=== PATIENT | female | born 1990 | race Caucasian/White ===

== ENCOUNTER 2016-09-24 12:03 | Emergency (ER) | payer OTHER | END 2016-09-24 14:45 | disposition home or self-care (01) | LOC: FER 12:03 | DX: G44.209 Tension-type headache, unspecified, not intractable (principal); F41.9 Anxiety disorder, unspecified | CPT/HCPCS: J1100; J1885; J2765 ==

== ENCOUNTER 2020-05-05 13:39 | Emergency (ER) | payer OTHER ==
[2020-05-05 17:18] LABS: BILIRUBIN NEGATIVE (NEGATIVE); BLOOD NEGATIVE Ery/uL (NEGATIVE); CLARITY CLEAR (CLEAR); COLOR YELLOW (YELLOW); GLUCOSE (U) NORMAL (NORMAL); LEUKOCYTES NEGATIVE Leu/uL (NEGATIVE); NITRITE POSITIVE (NEGATIVE); PROTEIN NEGATIVE (NEGATIVE); SPECIFIC GRAVITY >=1.030 (1.001-1.030); UROBILINOGEN 0.2 mg/dL (0.2-1.0)
[2020-05-05 17:31] LABS: BASOPHIL 0.8 % (0-2); EOSINOPHIL 1.6 % (0-5); HCT 39.4 % (37.0-47.0); HGB 12.6 g/dl (12.5-16.0); LYMPHOCYTE 30.5 % (15-48); MCH 27.9 pg (25.0-31.0); MCV 87.2 fL (78.0-100.0); MONOCYTE 5.1 % (0-12); MPV 10.1 fL (6.0-9.5); NEUTROPHIL 61.8 % (41-80); NRBC 0; PLT 323 K/uL (150-400); RBC 4.52 M/uL (4.20-5.40); RDW 12.5 % (11.5-14.0); WBC 8.4 K/uL (4.0-10.5)
[2020-05-05 17:39] LABS: BACTERIA 4+
[2020-05-05 17:41] LABS: MUCOUS TRACE; SQUAMOUS EPITHELIAL CELLS RARE
[2020-05-05 17:47] LABS: ALBUMIN 3.8 g/dL (3.4-5.0); BILIRUBIN - TOTAL 0.5 mg/dL (0.2-1.0); BUN/CREAT RATIO (CALC) 22.5 RATIO; CREATININE 0.89 mg/dL (0.51-0.95); GLOBULIN (CALCULATION) 4.1 g/dL; POTASSIUM 3.9 mmol/L (3.5-5.1); TOTAL PROTEIN 7.9 g/dL (6.4-8.2)
[2020-05-05] MEDS ORDERED: PROTONIX 40MG T40 MG PO (18:24)
[2020-05-05] MEDS ORDERED: ZOFRAN4 M1 PO (18:24)
[2020-05-05] MEDS ORDERED: BACTRIM DS TAB1 EACH PO (18:28)
== END 2020-05-05 18:43 | disposition home or self-care (01) ==
LOC: FER 13:39
PROVIDERS: Nurse Practitioner Family
DX: K21.9 Gastro-esophageal reflux disease without esophagitis (principal); N39.0 Urinary tract infection, site not specified; Z87.19 Personal history of other diseases of the digestive system
CPT/HCPCS: 36415; 80053; 81001; 85025; 87076; 87088; 87186; 99284

== ENCOUNTER 2020-05-31 17:51 | Emergency (ER) | payer OTHER ==
[~2020-05-31 17:51] MED LIST: BACTRIM DS TAB1 EACH PO; PROTONIX 40MG T40 MG PO; ZOFRAN4 M1 PO
[2020-05-31 19:22] LABS: BILIRUBIN NEGATIVE (NEGATIVE); BLOOD 3+ Ery/uL (NEGATIVE); CLARITY CLEAR (CLEAR); COLOR YELLOW (YELLOW); GLUCOSE (U) NORMAL (NORMAL); LEUKOCYTES NEGATIVE Leu/uL (NEGATIVE); NITRITE NEGATIVE (NEGATIVE); PROTEIN NEGATIVE (NEGATIVE); SPECIFIC GRAVITY 1.025 (1.001-1.030); UROBILINOGEN 0.2 mg/dL (0.2-1.0); pH 5.5 (5.0-9.0)
[2020-05-31 19:22] LABS: BASOPHIL 1.1 % (0-2); HCT 42.5 % (37.0-47.0); HGB 13.7 g/dl (12.5-16.0); LYMPHOCYTE 35.5 % (15-48); MCH 28.1 pg (25.0-31.0); MCHC 32.2 g/dL (32.0-36.0); MCV 87.3 fL (78.0-100.0); MONOCYTE 5.7 % (0-12); MPV 10.8 fL (6.0-9.5); NEUTROPHIL 54.4 % (41-80); NRBC 0; PLT 282 K/uL (150-400); RBC 4.87 M/uL (4.20-5.40); RDW 12.7 % (11.5-14.0); WBC 7.4 K/uL (4.0-10.5)
[2020-05-31 19:24] LABS: AMPHETAMINES NEGATIVE (NEGATIVE); BARBITURATES NEGATIVE (NEGATIVE); ECSTASY (MDMA) NEGATIVE (NEGATIVE); MARIJUANA (THC) NEGATIVE (NEGATIVE); METHADONE NEGATIVE (NEGATIVE); OPIATES NEGATIVE (NEGATIVE); OXYCODONE NEGATIVE (NEGATIVE)
[2020-05-31 19:27] LABS: BACTERIA TRACE
[2020-05-31 19:41] LABS: ALBUMIN 3.8 g/dL (3.4-5.0); BILIRUBIN - TOTAL 0.4 mg/dL (0.2-1.0); BUN/CREAT RATIO (CALC) 11.6 RATIO; CREATININE 0.95 mg/dL (0.51-0.95); GLOBULIN (CALCULATION) 3.8 g/dL; POTASSIUM 3.3 mmol/L (3.5-5.1); TOTAL PROTEIN 7.6 g/dL (6.4-8.2)
== END 2020-05-31 20:51 | disposition home or self-care (01) ==
LOC: FER 17:51
PROVIDERS: Nurse Practitioner Family
DX: R10.11 Right upper quadrant pain (principal); R11.0 Nausea; K21.9 Gastro-esophageal reflux disease without esophagitis; Z79.899 Other long term (current) drug therapy
CPT/HCPCS: 36415; 76705; 80053; 80305; 81001; 82150; 83690; 85025; J1885; J2405; J7030

== ENCOUNTER 2020-07-11 18:50 | Emergency (ER) | payer OTHER ==
[2020-07-11] MEDS ORDERED: AMOXICILLIN500 M2 PO (20:39)
== END 2020-07-11 20:57 | disposition home or self-care (01) ==
LOC: FER 18:50
DX: H66.93 Otitis media, unspecified, bilateral (principal); Z88.1 Allergy status to other antibiotic agents
CPT/HCPCS: 99282

== ENCOUNTER 2020-08-11 15:19 | Emergency (ER) | payer OTHER ==
[~2020-08-11 15:19] MED LIST changes: +AMOXICILLIN500 M2 PO
[2020-08-11] MEDS ORDERED: AUGMENTIN 875-1 EACH PO (18:14)
== END 2020-08-11 18:33 | disposition home or self-care (01) ==
LOC: FER 15:19
DX: J32.9 Chronic sinusitis, unspecified (principal); H92.03 Otalgia, bilateral; Z88.1 Allergy status to other antibiotic agents; Z88.8 Allergy status to other drugs, medicaments and biological substances; Z88.2 Allergy status to sulfonamides; Z20.822 Contact with and (suspected) exposure to COVID-19
CPT/HCPCS: 87880; 99283; U0002